=== PATIENT | male | born 1995 | race African-American/Black ===

== ENCOUNTER 2019-04-15 16:13 | Emergency (ER) | payer OTHER ==
[2019-04-15 16:28] VITALS: BP 148/72
[2019-04-15 16:55] LABS: BILIRUBIN,URINE NEGATIVE (NEGATIVE); GLUCOSE, URINE (UA) NEGATIVE (NEGATIVE); KETONES,URINE (UA) NEGATIVE (NEGATIVE); LEUKOCYTE ESTERASE, URINE NEGATIVE (NEGATIVE); NITRITE,URINE NEGATIVE (NEGATIVE); OCCULT BLOOD,URINE NEGATIVE (NEGATIVE); PROTEIN,URINE NEGATIVE (NEGATIVE); UROBILINOGEN,URINE 0.2 (NORMAL) E.U./dL (NORMAL)
[2019-04-15 16:58] LABS: CLARITY,URINE CLEAR (CLEAR)
[2019-04-15] MEDS ORDERED: AZITHROMYCIN 250 MG TABLET PO STA (17:09)
--- NOTE | 2019-04-15 17:10 | ED Physician Documentation ---
History of Present Illness - Stated complaint Stated Complaint: MALE - Chief complaint Chief Complaint: General - History obtained from History obtained from: Patient - History of Present Illness Timing: Other (His ex-girlfriend called him a few days ago to let him know that she had chlamydia. He has no symptoms.) Review of Systems Respiratory: reports: Reviewed and negative GI: reports: Reviewed and negative : reports: Reviewed and negative PD PAST MEDICAL HISTORY - Allergies Allergies/Adverse Reactions: Allergies Allergy/AdvReac Type Severity Reaction Status Date / Time No Known Drug Allergies Allergy Verified 04/15/19 16:24 - Social History Does the pt smoke?: Yes Smoking Status: Current every day smoker Does the pt drink ETOH?: No Does the pt have substance abuse?: No PD ED PE NORMAL - Vitals Vital signs reviewed: Yes - General General: Alert and oriented X 3, No acute distress - Abdomen Abdomen: Non tender - Neuro Neuro: Alert and oriented X 3, Normal speech Results - Vitals Vitals: Vital Signs - 24 hr 04/15/19 16:24 Temperature 36.7 C Heart Rate 74 Respiratory 16 Rate Blood Pressure 148/72 H O2 Saturation 98 Oxygen O2 Source Room air - Labs Labs: Laboratory Tests 04/15/19 16:36 Urine Color YELLOW Urine Clarity CLEAR Urine pH 6.0 Ur Specific [place] 1.020 Urine Protein NEGATIVE Urine Glucose (UA) NEGATIVE Urine Ketones NEGATIVE Urine Occult Blood NEGATIVE Urine Nitrite NEGATIVE Urine Bilirubin NEGATIVE Urine Urobilinogen 0.2 (NORMAL) Ur Leukocyte Esterase NEGATIVE Ur Microscopic Review NOT INDICATED Urine Culture Comments NOT INDICATED Departure - Departure Disposition: 01 Home, Self Care Clinical Impression: Chlamydia contact, treated Condition: Good Record reviewed to determine appropriate education?: Yes Health Concerns: poss chlamydia Plan of Treatment: zithromax 1g PO given, testing Instructions: ED STD Male Treated
[2019-04-15 22:11] LABS: TRICHOMONAS VAGINALIS DNA NEGATIVE (NEGATIVE)
== END 2019-04-15 17:17 | disposition home or self-care (01) ==
LOC: ED 16:13
DX: Z20.2 Contact with and (suspected) exposure to infections with a predominantly sexual mode of transmission (principal); F17.200 Nicotine dependence, unspecified, uncomplicated
CPT/HCPCS: 81003; 87491; 87591; 87661; 99283; A9270; 81001; 87086

== ENCOUNTER 2020-10-25 15:20 | Outpatient (CLI) | payer OTHER | END 2020-10-25 23:59 | disposition home or self-care (01) | LOC: LAB.R 15:20 | PROVIDERS: ATTEND Physician Assistant Medical | DX: A74.89 Other chlamydial diseases (principal) | CPT/HCPCS: 87491; 87591; 87661 ==